=== PATIENT | female | born 1945 | race Caucasian/White ===

== ENCOUNTER 2025-01-18 08:54 | Inpatient (IN) | payer MEDICARE ==
[2025-01-18] MEDS ORDERED: Bisacodyl 10 MG SUPP PR PRN (10:22)
[2025-01-18] MEDS ORDERED: Diphenoxylate HCl/Atropine Tablet PO PRN (10:26)
[2025-01-18] MEDS ORDERED: Dicyclomine 10 MG CAP PO PRN (10:26)
[2025-01-18] MEDS ORDERED: Glucagon 1 MG/ML KIT IM PRN (10:59)
[2025-01-18] MEDS ORDERED: Dextrose 50% Abboject 50 ML SYRINGE SLOW IVP PRN (10:59)
[2025-01-18 18:04] VITALS: BMI 20.2
[2025-01-18] MEDS: Apixaban 5 MG TAB PO SCH (20:30)
[2025-01-18] MEDS: Gabapentin 300 MG CAP PO SCH (20:30)
[2025-01-18] MEDS ORDERED: Famotidine 20 MG TAB PO SCH (21:00)
[2025-01-19] MEDS: Acetaminophen 325 MG TAB PO PRN (03:03)
[2025-01-19 05:33] LABS: #Basophils 0.3 thou/uL (0.0-0.2); #Eosinophils 0.2 thou/uL (0.0-0.7); #Lymphocytes 1.0 thou/uL (1.20-3.40); #Monocytes 0.6 thou/uL (0.11-0.59); #Neutrophils 3.9 thou/uL (1.40-6.50); %Basophils 4.7 % (0.0-1.0); %Eosinophils 2.6 % (0.0-10.0); %Lymphocytes 17.0 % (21.0-51.0); %Monocytes 10.0 % (0.0-10.0); %Neutrophils 65.8 % (42.0-75.0); Hematocrit 25.5 % (36.0-47.0); Hemoglobin 8.2 g/dL (12.0-16.0); Mean Corpuscular Hemoglobin 27.9 pg (27.0-31.0); Mean Corpuscular Volume 86.2 fl (78.0-98.0); Platelet Count 384 10x3/uL (130-400); Red Blood Cell (RBC) Count 2.96 mill/uL (4.20-5.40); White Blood Cell (WBC) Count 6.0 10x3/uL (4.8-10.8)
[2025-01-19 05:47] LABS: ALT (SGPT) 7 U/L (Less than 34); AST (SGOT) 23 U/L (11-34); Albumin 2.7 g/dL (3.1-4.5); Alkaline Phosphatase 122 U/L (40-110); Anion Gap 11 mmol/L (10-20); BUN (Urea Nitrogen) 13 mg/dL (9.8-20.1); Bilirubin, Total 0.3 mg/dL (0.3-1.2); CK (CPK) 59 U/L (29-168); Calc. Creatinine Clearance 58 mL/min (70-130); Calcium 9.4 mg/dL (7.8-10.44); Carbon Dioxide 34 mmol/L (23-31); Chloride 99 mmol/L (98-107); Globulin 2.8 g/dL (2.4-3.5); Glucose 97 mg/dL (83-110); Potassium 4.1 mmol/L (3.5-5.1); Sodium 140 mmol/L (136-145)
[2025-01-19] MEDS: Pantoprazole 40 MG DR.TAB PO SCH (08:20)
[2025-01-19] MEDS: Lisinopril 20 MG TAB PO SCH (08:21)
[2025-01-19] MEDS: Ferrous Sulfate 325 MG TAB PO SCH (11:06)
[2025-01-19] MEDS: HYDROcodone/Acetaminophen 5/325 mg Tablet PO PRN (18:29)
[2025-01-20] MEDS: Melatonin 3 MG TAB PO SCH (20:56)
[2025-01-20] MEDS: Transdermal Patch Removal LIDOCAINE TOP SCH (20:59)
[2025-01-23] MEDS: Ferrous Sulfate 325 MG TAB PO SCH (11:50)
[2025-01-24 05:56] LABS: #Basophils 0.4 thou/uL (0.0-0.2); #Eosinophils 0.3 thou/uL (0.0-0.7); #Lymphocytes 1.1 thou/uL (1.20-3.40); #Monocytes 0.6 thou/uL (0.11-0.59); #Neutrophils 3.0 thou/uL (1.40-6.50); %Basophils 7.1 % (0.0-1.0); %Eosinophils 6.4 % (0.0-10.0); %Lymphocytes 20.5 % (21.0-51.0); %Monocytes 11.1 % (0.0-10.0); %Neutrophils 55.0 % (42.0-75.0); Hematocrit 26.5 % (36.0-47.0); Hemoglobin 8.6 g/dL (12.0-16.0); Mean Corpuscular Hemoglobin 27.8 pg (27.0-31.0); Mean Corpuscular Volume 85.4 fl (78.0-98.0); Platelet Count 453 10x3/uL (130-400); Red Blood Cell (RBC) Count 3.10 mill/uL (4.20-5.40); White Blood Cell (WBC) Count 5.5 10x3/uL (4.8-10.8)
[2025-01-24 06:10] LABS: Anion Gap 13 mmol/L (10-20); BUN (Urea Nitrogen) 12 mg/dL (9.8-20.1); Calc. Creatinine Clearance 55 mL/min (70-130); Calcium 9.3 mg/dL (7.8-10.44); Carbon Dioxide 32 mmol/L (23-31); Chloride 98 mmol/L (98-107); Glucose 92 mg/dL (83-110); Potassium 4.0 mmol/L (3.5-5.1); Sodium 139 mmol/L (136-145)
[2025-01-25] MEDS: HYDROcodone/Acetaminophen 10/325 mg Tablet PO PRN (16:54)
[2025-01-27] MEDS: Senokot S 8.6-50 MG TAB PO PRN (17:43)
[2025-01-31 05:42] LABS: Hematocrit 27.9 % (36.0-47.0); Hemoglobin 9.0 g/dL (12.0-16.0); Platelet Count 431 10x3/uL (130-400)
[2025-01-31 20:46] LABS: Glucose, Urine (Dipstick) Negative (Negative); Leukocyte Negative (Negative); Protein, Urine (Dipstick) Negative (Neg-Trace); Specific Gravity, Urine 1.015 (1.005-1.030)
[2025-01-31 20:53] LABS: CAUTI Indications for Culture Alt mental st,lethar; RBC/HPF 0-3 HPF (0-3); WBC/HPF 0-3 HPF (0-3)
[2025-01-31 20:54] LABS: Urine Culture Reflex No No
[2025-02-02 05:22] LABS: Hematocrit 32.4 % (36.0-47.0); Hemoglobin 10.4 g/dL (12.0-16.0); MDiff Complete? YES; Mean Corpuscular Hemoglobin 27.2 pg (27.0-31.0); Mean Corpuscular Volume 84.5 fl (78.0-98.0); Platelet Count 440 10x3/uL (130-400); Red Blood Cell (RBC) Count 3.83 mill/uL (4.20-5.40); White Blood Cell (WBC) Count 7.1 10x3/uL (4.8-10.8)
[2025-02-02 05:26] LABS: Anion Gap 13 mmol/L (10-20); BUN (Urea Nitrogen) 27 mg/dL (9.8-20.1); Calc. Creatinine Clearance 66 mL/min (70-130); Calcium 9.5 mg/dL (7.8-10.44); Carbon Dioxide 31 mmol/L (23-31); Chloride 98 mmol/L (98-107); Glucose 94 mg/dL (83-110); Potassium 4.1 mmol/L (3.5-5.1); Sodium 138 mmol/L (136-145)
[2025-02-02] MEDS: Ferrous Sulfate 325 MG TAB PO SCH (12:13)
[2025-02-03] MEDS: HYDROcodone/Acetaminophen 7.5/325 mg Tablet PO PRN (09:26)
[2025-02-04] MEDS: Ferrous Sulfate 325 MG TAB PO SCH (12:17)
[2025-02-07 05:57] LABS: Anion Gap 15 mmol/L (10-20); BUN (Urea Nitrogen) 41 mg/dL (9.8-20.1); Calc. Creatinine Clearance 54 mL/min (70-130); Calcium 9.7 mg/dL (7.8-10.44); Carbon Dioxide 31 mmol/L (23-31); Chloride 99 mmol/L (98-107); Glucose 91 mg/dL (83-110); Potassium 4.1 mmol/L (3.5-5.1); Sodium 141 mmol/L (136-145)
[2025-02-07 06:15] LABS: Hematocrit 29.4 % (36.0-47.0); Hemoglobin 9.7 g/dL (12.0-16.0); MDiff Complete? YES; Mean Corpuscular Hemoglobin 27.6 pg (27.0-31.0); Mean Corpuscular Volume 84.2 fl (78.0-98.0); Platelet Count 383 10x3/uL (130-400); Red Blood Cell (RBC) Count 3.50 mill/uL (4.20-5.40); White Blood Cell (WBC) Count 6.0 10x3/uL (4.8-10.8)
[2025-02-07 16:09] VITALS: BMI 20.5
[2025-02-08 08:54] VITALS: TEMP 98.1
[2025-02-08 16:46] VITALS: BP 126/59
== END 2025-02-08 18:48 | disposition home health service (06) | DRG 945 ==
LOC: NAV ACUTE 17:45
PROVIDERS: ADMIT Family Medicine; ATTEND Family Medicine
PROC: F07Z5ZZ Bed Mobility Treatment (ICD-10-PCS; principal; 2025-01-19)
PROC: F08Z0ZZ Bathing/Showering Techniques Treatment (ICD-10-PCS; 2025-01-19)
DX: R53.81 Other malaise (principal); J96.21 Acute and chronic respiratory failure with hypoxia; L89.154 Pressure ulcer of sacral region, stage 4; N17.9 Acute kidney failure, unspecified; R78.81 Bacteremia; E46 Unspecified protein-calorie malnutrition; I48.20 Chronic atrial fibrillation, unspecified; Z66 Do not resuscitate; I10 Essential (primary) hypertension; Z88.5 Allergy status to narcotic agent; E11.9 Type 2 diabetes mellitus without complications; D64.9 Anemia, unspecified; Z98.890 Other specified postprocedural states; Z92.21 Personal history of antineoplastic chemotherapy; Z92.3 Personal history of irradiation; E86.0 Dehydration; B95.61 Methicillin susceptible Staphylococcus aureus infection as the cause of diseases classified elsewhere; I89.0 Lymphedema, not elsewhere classified; C50.919 Malignant neoplasm of unspecified site of unspecified female breast; R07.9 Chest pain, unspecified; S42.301D Unspecified fracture of shaft of humerus, right arm, subsequent encounter for fracture with routine healing
CPT/HCPCS: 36415; 36416; 80048; 80053; 81001; 82550; 85014; 85018; 85025; 85049; 97602; J0878; J1642; J1815; J7030; Q0162

== ENCOUNTER 2025-01-31 16:38 | Emergency (ER) | payer MEDICARE ==
[2025-01-31 17:07] LABS: Hematocrit 26.1 % (36.0-47.0); Hemoglobin 8.4 g/dL (12.0-16.0); MDiff Complete? YES; Mean Corpuscular Hemoglobin 27.5 pg (27.0-31.0); Mean Corpuscular Volume 85.0 fl (78.0-98.0); Platelet Count 411 10x3/uL (130-400); Red Blood Cell (RBC) Count 3.07 mill/uL (4.20-5.40); White Blood Cell (WBC) Count 5.5 10x3/uL (4.8-10.8)
[2025-01-31 17:14] LABS: ALT (SGPT) 9 U/L (Less than 34); AST (SGOT) 27 U/L (11-34); Albumin 2.6 g/dL (3.1-4.5); Alkaline Phosphatase 128 U/L (40-110); Anion Gap 14 mmol/L (10-20); BUN (Urea Nitrogen) 36 mg/dL (9.8-20.1); Bilirubin, Total 0.3 mg/dL (0.3-1.2); Calc. Creatinine Clearance 0 mL/min (70-130); Calcium 9.1 mg/dL (7.8-10.44); Carbon Dioxide 28 mmol/L (23-31); Chloride 99 mmol/L (98-107); Globulin 2.6 g/dL (2.4-3.5); Glucose 216 mg/dL (83-110); Potassium 4.2 mmol/L (3.5-5.1); Sodium 137 mmol/L (136-145)
[2025-01-31 17:15] LABS: Troponin I Less than 0.010 ng/mL (< 0.028)
== END 2025-01-31 18:13 | disposition critical access hospital (66) ==
LOC: NAV ERS 16:38
DX: I95.9 Hypotension, unspecified (principal); D64.9 Anemia, unspecified; R55 Syncope and collapse; E11.9 Type 2 diabetes mellitus without complications; I48.91 Unspecified atrial fibrillation
CPT/HCPCS: 80053; 83605; 84484; 85025; 87040; 96360